=== PATIENT | male | born 1960 | race Caucasian/White ===

== ENCOUNTER 2016-10-19 18:57 | Emergency (ER) | payer OTHER ==
[~2016-10-19] VITALS: Ht 170.2 cm; Wt 95.7 kg
--- NOTE | 2016-10-19 20:32 | ULTRASOUND REPORT ---
EXAMINATION: US TRIPLEX LOWER EXTREMITY, RIGHT CLINICAL INFORMATION: Right lower extremity pain and swelling. COMPARISON: None. TECHNIQUE: Color-flow triplex imaging with spectral analysis and compression Doppler were performed on the lower extremity. FINDINGS: Respiratory variation, normal compression and augmented flow are noted throughout the left lower extremity. The visualized common femoral vein, femoral vein, profunda femoral vein, popliteal vein and midcalf peroneal and posterior tibial venous segments show no evidence of deep venous thrombosis. There is no Mace's cyst. IMPRESSION: Normal triplex scan without evidence of deep venous thrombosis involving the lower extremity.
[2016-10-19] MEDS ORDERED: CLONAZEPAM0.5 M2 PO (21:27)
[2016-10-19] MEDS ORDERED: VALSARTAN320 M1 PO (21:27)
[2016-10-19] MEDS ORDERED: ALEVE220 M1 PO (21:28)
--- NOTE | 2016-10-19 21:34 | ED GENERAL ADULT ---
History of Present Illness General Chief Complaint: Lower Extremity Problems Stated Complaint: R LEG SWELLING Source: patient, family Exam Limitations: no limitations Vital Signs & Intake/Output Vital Signs & Intake/Output Vital Signs Date Time Temp Pulse Resp B/P B/P Pulse O2 O2 Flow FiO2 Mean Ox Delivery Rate 10/19 2140 97.8 75 20 171/88 99 Room Air 10/19 1901 99.0 76 16 164/94 97 Room Air ED Intake and Output 10/20 0000 10/19 1200 Intake Total Output Total Balance Patient 211 lb Weight Weight Reported by Patient Measurement Method Allergies Coded Allergies: Penicillins (HIVES 10/19/16) Reconcile Medications Clonazepam 0.5 MG TABLET 1 TAB PO PRN ANXIETY (Reported) Naproxen (Naprosyn) 500 MG TABLET 1 TAB PO Q12H PRN pain/swelling Naproxen Sodium (Aleve) 220 MG CAPSULE 2 TAB PO PRN PAIN (Reported) Valsartan 320 MG TABLET 1 TAB PO DAILY BP (Reported) Triage Note: PT STEPPED OFF HIS BOAT AND FELT A PULL IN HIS RIGHT LOWER EXT. ABOUT 1100AM TODAY. PT WENT TO WALK IN AND WAS SENT TO ED TO R/O DVT. RIGHT LOWER EXT SWOLLEN AND HARD. Triage Nurses Notes Reviewed? yes HPI: Patient is a 56-year-old male presents complaining of right calf pain. Patient reports he was stepping off his boat today when he felt a pull in his right calf. Pain is mild to moderate at rest, severe when he attempts ambulation. Patient has not taken any medication for her symptoms prior to arrival. Patient was seen at an urgent care clinic and was referred to the emergency department to rule out DVT. Patient denies numbness, weakness, chest pain, dyspnea. (ORTIZ WHITEHEAD) Past History Travel History Traveled to [place] past 21 day No Medical History Any Pertinent Medical History? see below for history Cardiovascular: hypertension Surgical History Surgical History: non-contributory Psychosocial History What is your primary language Bangladeshi Tobacco Use: Quit >30 days ago ETOH Use: denies use Illicit Drug Use: denies illicit drug use Family History Hx Contributory? No (ORTIZ WHITEHEAD) Review of Systems Review of Systems Constitutional: Denies: chills, fever. EENTM: Reports: no symptoms. Respiratory: Denies: short of breath. Cardiovascular: Denies: chest pain. GI: Denies: abdominal pain. Musculoskeletal: Reports: see HPI. Denies: back pain, neck pain. Skin: Reports: no symptoms. Neurological/Psychological: Denies: numbness, paresthesia. Hematologic/Endocrine: Denies: bruising, bleeding. Immunologic/Allergic: Reports: no symptoms. (ORTIZ WHITEHEAD) Physical Exam Physical Exam General Appearance: well developed/nourished, alert, awake Head: atraumatic, normal appearance Eyes: Bilateral: normal appearance, PERRL, EOMI. Ears, Nose, Throat: normal pharynx, normal ENT inspection, hearing grossly normal Neck: normal inspection, supple, full range of motion Respiratory: normal breath sounds, no respiratory distress, lungs clear Cardiovascular: regular rate/rhythm Peripheral Pulses: 2+ dorsalis pedis (R), 2+ dorsalis pedis (L) Back: normal inspection, normal range of motion, no vertebral tenderness Extremities: RIGHT CALF TENDERNESS. fULL RANGE OF MOTION OF RIGHT LOWER EXTREMITY. pAIN INCREASES WITH AMBULATION Neurologic/Psych: no motor/sensory deficits, awake, alert, oriented x 3, normal mood/affect, ANTALGIC GAIT Skin: intact, normal color, warm/dry Lymphatic: no anterior cervical sonia Core Measures ACS in differential dx? No CVA/TIA Diagnosis: No Severe Sepsis Present: No Septic Shock Present: No (ORTIZ WHITEHEAD) Progress Differential Diagnoses I considered the following diagnoses in my evaluation of the patient: calf strain, achilles tendon rupture, dvt Plan of Care: Results of ultrasound discussed with patient. Exam and history is consistent with muscle strain. Patient has crutches of his own. Patient is stable for conservative management and outpatient follow-up. Diagnostic Imaging: Discussed w/RAD: Ultrasound. Radiology Impression: no dvt Initial ED EKG: none (ORTIZ WHITEHEAD) Departure Departure Time of Disposition: 2142 Disposition: HOME OR SELF CARE Condition: Stable Clinical Impression Primary Impression: Strain of calf muscle Qualifiers: Encounter type: initial encounter Laterality: right Qualified Code: S86.811A - Strain of other muscle(s) and tendon(s) at lower leg level, right leg , initial encounter Referrals: ALEJANDRINA DE PAZ,BHASKAR CEBALLOS MD,ISAURA Antunez (PCP/Family) Additional Instructions: Rest, ice for 20 minutes 4-5 times a day, elevate, wear aspen wrap for support. Monitor your blood pressure daily over the next 3 days. If your blood pressure remains elevated then follow up with your primary doctor for further evaluation. Follow up with Dr. Herring(orthopedist) if no improvement in your calf within 2- 3 days. Return to the ER if numbness, weakness, pain uncontrollable or worsening of symptoms. Departure Forms: Customer Survey General Discharge Information Prescriptions: Current Visit Scripts Naproxen (Naprosyn) 1 TAB PO Q12H PRN pain/swelling #15 TAB (ORTIZ WHITEHEAD) PA/BASEBALL COACH Co-Sign Statement Statement: ED Attending supervision documentation- [] I saw and evaluated the patient. I have also reviewed all the pertinent lab results and diagnostic results. I agree with the findings and the plan of care as documented in the PA's/BASEBALL COACH's documentation. [x] I have reviewed the ED Record and agree with the PA's/BASEBALL COACH's documentation. [] Additions or exceptions (if any) to the PAs/BASEBALL COACH's note and plan are summarized below: [] (LUL DE PAZ,ANISHA Artis) Critical Care Note Critical Care Note Critical Care Time: non-applicable (ORTIZ WHITEHEAD)
[2016-10-19 21:40] VITALS: BP 171/88
[2016-10-19] MEDS ORDERED: NAPROSYN500 M1 PO (21:45)
== END 2016-10-19 21:52 ==
LOC: ERH 18:57
DX: S86.111A Strain of other muscle(s) and tendon(s) of posterior muscle group at lower leg level, right leg, initial encounter (principal); X58.XXXA Exposure to other specified factors, initial encounter; Y92.814 Boat as the place of occurrence of the external cause; Y93.9 Activity, unspecified

== ENCOUNTER 2016-10-28 12:46 | Emergency (ER) | payer OTHER ==
[~2016-10-28] VITALS: Ht 170.2 cm; Wt 95.7 kg
[~2016-10-28 12:46] MED LIST: ALEVE220 M1 PO; CLONAZEPAM0.5 M2 PO; NAPROSYN500 M1 PO; VALSARTAN320 M1 PO
--- NOTE | 2016-10-28 12:54 | ED GI/GU/ABDOMINAL COMPLAINT ---
History of Present Illness General Chief Complaint: General Adult Stated Complaint: BLOOD IN STOOL Source: patient, family, old records Exam Limitations: no limitations Vital Signs & Intake/Output Vital Signs & Intake/Output ED Intake and Output 10/29 0000 10/28 1200 Intake Total 1000 Output Total Balance 1000 Intake, IV 1000 Patient 211 lb Weight Weight Reported by Patient Measurement Method Allergies Coded Allergies: Penicillins (HIVES 10/19/16) Reconcile Medications Ciprofloxacin HCl (Cipro) 500 MG TABLET 1 TAB PO BID colitis Clonazepam 0.5 MG TABLET 1 TAB PO PRN ANXIETY (Reported) Lisinopril/Hydrochlorothiazide (Lisinopril-Hctz 10-12.5 MG Tab) 10 MG-12.5 MG TABLET 1 TAB PO DAILY HEART (Reported) Metronidazole (Flagyl) 500 MG TABLET 1 TAB PO TID colitis Valsartan 320 MG TABLET 1 TAB PO DAILY BP (Reported) Triage Note: 56 YO MALE TO TRIAGE C/O BRIGHT RED CLOTS IN TOILET SINCE LAST NIGHT. STATES HAD 2 EPISODES THIS AM. C/O LOWER ABD PAIN. DENIES N/V Triage Nurses Notes Reviewed? yes Onset: Abrupt Duration: day(s): (1), intermittent, waxing and waning Timing: recent history Quality/Severity: aching, cramping Severity Numbers: 4 Location: left lower quadrant, right lower quadrant Radiation: no radiation Activities at Onset: none Prior Abdominal Problems: none No Modifying Factors: none Associated Symptoms: denies HPI: 56-year-old male with history of hypertension presents to ER for evaluation after he had 3 episodes of passing bright red clots while having a bowel movement be getting last night. He states that late yesterday afternoon he began to have crampy bilateral lower quadrant abdominal pain that is intermittent in nature. He describes a sensation as feeling as though he needs a bowel movement. He states that he had 3 episodes of diarrhea that was nonbloody prior to the episode occurring. No recent travel no sick contacts he does not smoke or drink alcohol. He's never had a colonoscopy before. He denies abdominal pain this time, he states it has been nonradiating no chest pain shortness of breath dizziness lightheadedness no urinary symptoms. He denies any hematemesis hemoptysis hematuria. He is on lisinopril hydrochlorothiazide he denies blood thinner use. He is been taking naproxen as directed after being recently seen here 9 days ago for a calf strain which has resolved. the pain is resolved with a bowel movement, no rectal pain (ALEXANDER JOHNSON) Past History Travel History Traveled to [place] past 21 day No Medical History Any Pertinent Medical History? see below for history Neurological: NONE EENT: NONE Cardiovascular: hypertension Respiratory: NONE Gastrointestinal: NONE Hepatic: NONE Renal: NONE Musculoskeletal: NONE Psychiatric: NONE Endocrine: NONE Blood Disorders: NONE Cancer(s): NONE DOCUMENT COORDINATOR/Reproductive: NONE Surgical History Surgical History: non-contributory Psychosocial History What is your primary language Tongan Tobacco Use: Never used ETOH Use: denies use Family History Hx Contributory? No (ALEXANDER JOHNSON) Review of Systems Review of Systems Constitutional: Reports: see HPI. All Other Systems: Reviewed and Negative Comments Review of systems: See HPI, All other systems negative. Constitutional, no chills no fever, no malaise no weight loss HEENT: No visual changes no sore throat no congestion, no ear pain Cardiovascular: No chest pain , no palpitation Skin: no rashes, no change in skin Respiratory: No dyspnea no cough no sputum GI: No nausea no vomiting, diarrhea, no bloating/constipation : No dysuria No hematuria, no frequency Muscle skeletal: No joint pain no back pain, no neck pain, Neurologic: no headache Psych: No stress Heme/endocrine: No bruising no bleeding Immunology: No lymphadenopathy (ALEXANDER JOHNSON) Physical Exam Physical Exam General Appearance: well developed/nourished, no apparent distress, alert, awake Gastrointestinal: soft, non-tender Comments: Well-developed well-nourished person in no acute distress HEENT: Normal EENT exam; PERRL, EOMI, HEAD is atraumatic. moist mucous membranes. Neck: Supple, normal range of motion Back: Nontender, no CVA tenderness. Full range of motion Cardiovascular: Regular rate and rhythms no murmurs Respiratory: No respiratory distress. Patient speaking in full complete sentences. Breath sounds clear to auscultation bilaterally: NO W/R/R Abdomen: Soft, nontender nondistended, no appreciable organomegaly. Normal bowel sounds. No rebound/guarding, No appreciable enlargement of the abdominal aorta, No ascites. Rectal: Nontender. Brown stool heme positive No mass/hemorrhoid, no fissure. Extremity: No edema, full range of motion of extremities Neuro: Alert oriented x3, motor sensory normal, There were no obvious focal neurologic abnormalities. Skin: No appreciable rash on exposed skin, skin is warm and dry. Psych: Mood and affect is normal, memory and judgment is normal. Core Measures ACS in differential dx? Yes Severe Sepsis Present: No Septic Shock Present: No (AVIVA COREA,ALEXANDER) Progress Differential Diagnosis: AAA, bowel obstruction, colon cancer, diverticulitis, gastritis, ischemic bowel, inflamm bowel dis, peptic ulcer, perforated viscous Plan of Care: Orders Procedure Date/time Status MISTAKE 10/28 1311 Active Saline Lock 10/28 1256 Active TROPONIN LEVEL 10/29 1255 Complete PARTIAL THROMBOPLASTIN TIME 10/28 125 Complete PROTHROMBIN TIME 10/28 125 Complete LACTIC ACID 10/28 1256 Complete COMPREHENSIVE METABOLIC PANEL 10/28 1256 Complete CBC WITHOUT DIFFERENTIAL 10/28 125 Complete EKG 10/28 125 Active TYPE & SCREEN (NOT X-MATCH) 10/28 125 Active Laboratory Tests 10/28/16 1311: Anion Gap 15, Estimated GFR > 60, BUN/Creatinine Ratio 22.0, Glucose 112 H, Lactic Acid 1.3, Calcium 9.9, Total Bilirubin 1.0, AST 20, ALT 40, Alkaline Phosphatase 103, Troponin I < 0.01, Total Protein 8.2, Albumin 5.0, Globulin 3.2 , Albumin/Globulin Ratio 1.6, PT 12.1, INR 1.15, APTT 30, CBC w Diff MAN DIFF ORDERED, RBC 5.84, MCV 86.9, MCH 29.4, RDW 13.0, MPV 8.6, Gran % 84.7 H, Lymphocytes % 9.7 L, Monocytes % 5.3, Eosinophils % 0.1, Basophils % 0.2, Absolute Granulocytes 10.3 H, Absolute Lymphocytes 1.2, Absolute Monocytes 0.6, Absolute Eosinophils 0, Absolute Basophils 0, Platelet Estimate VERIFIED BY SMEAR, Normocytic RBCs VERIFIED, Normochromic RBCs VERIFIED, PUBS MCHC 33.8 Patient denies any complaints at this time however noted to be hypertensive he did not take his blood pressure medication this morning CAT scan ordered case discussed with Dr. tam agrees with plan 1400 on repeat evaluation patient is resting comfortably he's had no episodes of bloody bowel movements no abdominal pain currently pending CAT scan discussed with him and his family at length all of his lab results today. On repeat eval pt resting comfortably, denies any complaints he has not had any episodes of hematocheiza/dairrhea here in the dept, I discussed with the patient at length all of their results. I had an extensive conversation regarding need for close follow up with their primary care physician this week as well as return precautions. I answered all of their questions, they feel comfortable with the plan and follow-up care. I discussed the medications that they will receive with the patient. I gave them signs and symptoms that could indicate an adverse reaction. I have advised them to limit their activities until they can see how they respond to the medication. (AVIVA COREA,ALEXANDER) Diagnostic Imaging: Viewed by Me: CT Scan. Discussed w/RAD: CT Scan. Radiology Impression: PATIENT: DOMENICA YUSUF PRESENT AGE: 56 PATIENT ACCOUNT NO: [id number] : 61 LOCATION: [facility] ORDERING PHYSICIAN: ALEXANDER COREA SERVICE DATE: 10/28/16 EXAM TYPE: CAT - CT ABD & PELVIS W IV CONTRAST EXAMINATION: CT ABDOMEN AND PELVIS WITH CONTRAST CLINICAL INFORMATION: Lower abdominal pain and bloody stool. Evaluate for colitis or diverticulitis. COMPARISON: None TECHNIQUE: Multidetector volumetric imaging was performed of the abdomen and pelvis before and after the IV administration of 94 mL of Optiray 320 intravenous contrast. Sagittal and coronal reformatted images were obtained on the technologist's workstation. DLP: 483 mGy-cm FINDINGS: LUNG BASES: Unremarkable. LIVER, GALLBLADDER, AND BILIARY TREE: Unremarkable. PANCREAS: Unremarkable. SPLEEN: Unremarkable. ADRENAL GLANDS : Unremarkable. KIDNEYS AND URETERS: Kidneys are normal in size and enhance symmetrically. Small, 0.7 cm cortical cyst within the right upper pole. The 0.5 cm hypodense focus within the interpolar region, posteriorly, is likely a cyst as well; it has a density of 14 HU (image 355, series 3). Small cortical cysts are also present within the right lower pole. 1.8 cm simple cortical cyst is present within the interpolar region of the left kidney. No nephrolithiasis or hydroureteronephrosis. BLADDER: Unremarkable. GASTROINTESTINAL TRACT: Stomach is unremarkable. Bowel loops are normal in caliber. Appendix is normal. There is mild circumferential wall thickening of the descending and sigmoid colon. Mild prominence of surrounding mesenteric vessels. Findings are suggestive of mild colitis. No bowel wall pneumatosis. No abscess or pneumoperitoneum. There are diverticula of the sigmoid colon without focal diverticulitis. The rectum is unremarkable. There is no perirectal inflammatory change. ABDOMINAL WALL: Small amount of fat protrudes into the proximal aspect of each inguinal canal. No significant findings in the abdominal wall. LYMPH NODES: No pathologic sized lymph nodes within the abdomen or pelvis. VASCULAR: Abdominal aorta is normal in caliber and the celiac trunk, SMA, TANJA and renal arteries are widely patent. Inferior vena cava is normal. PELVIC VISCERA: Prostate gland and seminal vesicles are unremarkable. No pelvic free fluid. OSSEOUS STRUCTURES: Unremarkable. IMPRESSION: Mild colitis of the descending and sigmoid colon -- possibly infectious in origin. DICTATED BY: KADEEM MENDOZA MD DATE/TIME DICTATED:10/28/161417 PATIENT CARE SPECIALIST:ABI DATE/TIME TRANSCRIBED:1417 CONFIDENTIAL, DO NOT COPY WITHOUT APPROPRIATE AUTHORIZATION. < Electronically signed in Other Vendor System> SIGNED BY: KADEEM MENDOZA MD 10/28/16 1431 Initial ED EKG: normal intervals, normal p-waves, normal QRS complex, normal sinus rhythm (90) (ALEXANDER JOHNSON) Departure Departure Time of Disposition: 2 Disposition: HOME OR SELF CARE Condition: Stable Clinical Impression Primary Impression: Colitis Referrals: LIN DE PAZ,ISAURA Antunez (PCP/Family) LINN FIGUEROA MD Additional Instructions: CIPRO AND FLAGYL DIRECTED. these were sent to [facility]. bland diet. follow up with shipping clerk/admin dr figueroa's office tomorrow as well as your primary care physician. return to the ER at anytime sooner with any concerns or worsening of your symptoms Departure Forms: Customer Survey General Discharge Information Prescriptions: Current Visit Scripts Ciprofloxacin HCl (Cipro) 1 TAB PO BID #14 TAB Metronidazole (Flagyl) 1 TAB PO TID #21 TAB (ALEXANDER JOHNSON) PA/CONTRACTS INTERN Co-Sign Statement Statement: ED Attending supervision documentation- I saw and evaluated the patient. I have also reviewed all the pertinent lab results and diagnostic results. I agree with the findings and the plan of care as documented in the PA's/CONTRACTS INTERN's documentation. X I have reviewed the ED Record and agree with the PA's/CONTRACTS INTERN's documentation. [] Additions or exceptions (if any) to the PAs/CONTRACTS INTERN's note and plan are summarized below: [] (ANGELICA DE PAZ,LALI)
[2016-10-28 13:18] LABS: ABSOLUTE BASOPHIL COUNT 0 /CUMM (0.0-0.2); ABSOLUTE EOSINOPHIL COUNT 0 /CUMM (0.0-0.7); ABSOLUTE GRANULOCYTE CT 10.3 /CUMM (1.4-6.5); ABSOLUTE LYMPH COUNT 1.2 /CUMM (1.2-3.4); ABSOLUTE MONOCYTE COUNT 0.6 /CUMM (0.10-0.60); BASOPHIL % 0.2 % (0.0-2.0); EOSINOPHIL % 0.1 % (0-5); GRANULOCYTE % 84.7 % (42.2-75.2); HEMATOCRIT 50.8 % (42-52); MEAN CORPUSCULAR HGB 29.4 PG (27.0-31.0); MEAN CORPUSCULAR HGB CONC 33.8 G/DL (33.0-37.0); MEAN CORPUSCULAR VOLUME 86.9 FL (80.0-94.0); MEAN PLATELET VOLUME 8.6 FL (7.4-10.4); PLATELET COUNT 205 /CUMM (130-400); RED BLOOD CELL CT 5.84 /CUMM (4.70-6.10); WHITE BLOOD CELL COUNT 12.1 /CUMM (4.8-10.8)
[2016-10-28 13:26] VITALS: BP 155/94
[2016-10-28 13:37] LABS: PT 12.1 SEC (9.4-12.5); PTT 30 SEC (25-37)
[2016-10-28] MEDS ORDERED: LISINOPRIL-HCT1 EAC2 PO (14:01)
--- NOTE | 2016-10-28 14:31 | CT SCAN REPORT ---
EXAMINATION: CT ABDOMEN AND PELVIS WITH CONTRAST CLINICAL INFORMATION: Lower abdominal pain and bloody stool. Evaluate for colitis or diverticulitis. COMPARISON: None TECHNIQUE: Multidetector volumetric imaging was performed of the abdomen and pelvis before and after the IV administration of 94 mL of Optiray 320 intravenous contrast. Sagittal and coronal reformatted images were obtained on the technologist's workstation. DLP: 483 mGy-cm FINDINGS: LUNG BASES: Unremarkable. LIVER, GALLBLADDER, AND BILIARY TREE: Unremarkable. PANCREAS: Unremarkable. SPLEEN: Unremarkable. ADRENAL GLANDS: Unremarkable. KIDNEYS AND URETERS: Kidneys are normal in size and enhance symmetrically. Small, 0.7 cm cortical cyst within the right upper pole. The 0.5 cm hypodense focus within the interpolar region, posteriorly, is likely a cyst as well; it has a density of 14 HU (image 355, series 3). Small cortical cysts are also present within the right lower pole. 1.8 cm simple cortical cyst is present within the interpolar region of the left kidney. No nephrolithiasis or hydroureteronephrosis. BLADDER: Unremarkable. GASTROINTESTINAL TRACT: Stomach is unremarkable. Bowel loops are normal in caliber. Appendix is normal. There is mild circumferential wall thickening of the descending and sigmoid colon. Mild prominence of surrounding mesenteric vessels. Findings are suggestive of mild colitis. No bowel wall pneumatosis. No abscess or pneumoperitoneum. There are diverticula of the sigmoid colon without focal diverticulitis. The rectum is unremarkable. There is no perirectal inflammatory change. ABDOMINAL WALL: Small amount of fat protrudes into the proximal aspect of each inguinal canal. No significant findings in the abdominal wall. LYMPH NODES: No pathologic sized lymph nodes within the abdomen or pelvis. VASCULAR: Abdominal aorta is normal in caliber and the celiac trunk, SMA, TANJA and renal arteries are widely patent. Inferior vena cava is normal. PELVIC VISCERA: Prostate gland and seminal vesicles are unremarkable. No pelvic free fluid. OSSEOUS STRUCTURES: Unremarkable. IMPRESSION: Mild colitis of the descending and sigmoid colon -- possibly infectious in origin.
[2016-10-28] MEDS ORDERED: FLAGYL500 MG PO (14:54)
[2016-10-28] MEDS ORDERED: CIPRO500 M1 PO (14:54)
== END 2016-10-28 15:03 ==
LOC: ERH 12:46
PROVIDERS: Physician Assistant Medical
DX: K52.9 Noninfective gastroenteritis and colitis, unspecified (principal)
CPT/HCPCS: 74177; 93005; 93010